=== PATIENT | female | born 1995 ===

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

== ENCOUNTER 2017-07-14 22:18 | Emergency (ER) | payer OTHER ==
[2017-07-14 22:55] VITALS: BMI 24.0
[2017-07-14 23:02] VITALS: BP 110/70; PULSE 71; TEMP 98.9
[2017-07-14 23:03] VITALS: RESP 19; O2SAT 97
--- NOTE | 2017-07-14 23:24 | ED PDOC ---
Arrival/HPI - History of Present Illness Activities at Onset: Light <BaljeetMerlin - Last Filed: 07/15/17 00:28> - General Historian: Patient EM Caveat: Language Barrier (patient spoke frisian and had family member translate) - History of Present Illness Time/Duration: Other (1 year) Symptom Onset: Gradual Symptom Course: Worsening Quality: Other (heavy feeling, with numbness and sharp pain. ) <Estrella Calhoun - Last Filed: 07/15/17 00:38> - General Chief Complaint: Chest Pain Time Seen by Provider: 07/14/17 22:31 - History of Present Illness Narrative History of Present Illness (Text): CC: arm pain, chest pain, back pain 07/14/17 23:20 21F had arm pain, chest pain, and shoulder pain that has been going on for about a year. Patient states it's been getting worse. Patient states she doesn' t have a job right now. Patient is right handed. Patient states the pain is worse with stress and anxiety, the pain at chest that radiates to back is worse when sleeping prone. Patient states that she feels like her left arm is heavy. No heavy lifting, no trauma. PMD: none. (Estrella Calhoun) Past Medical History - Provider Review Nursing Documentation Reviewed: Yes - Past History Past History: No Previous - Infectious Disease Hx of Infectious Diseases: None - Cardiac Hx Cardiac Disorders: No - Pulmonary Hx Respiratory Disorders: No - Neurological Hx Neurological Disorder: No - HEENT Hx HEENT Disorder: No - Renal Hx Renal Disorder: No - Endocrine/Metabolic Hx Endocrine Disorders: No - Hematological/Oncological Hx Blood Disorders: No - Integumentary Hx Dermatological Disorder: No - Musculoskeletal/Rheumatological Hx Musculoskeletal Disorders: No - Gastrointestinal Hx Gastrointestinal Disorders: No - Genitourinary/Gynecological Hx Genitourinary Disorders: No - Psychiatric Hx Psychophysiologic Disorder: No Hx Substance Use: No - Past Surgical History Past Surgical History: No Previous - Anesthesia Hx Anesthesia: No Hx Anesthesia Reactions: No Hx Malignant Hyperthermia: No <Estrella Calhoun - Last Filed: 07/15/17 00:38> Family/Social History - Physician Review Nursing Documentation Reviewed: Yes Family/Social History: Unknown Family HX Smoking Status: Never Smoked Hx Alcohol Use: No Hx Substance Use: No <Estrella Calhoun - Last Filed: 07/15/17 00:38> Allergies/Home Meds <Hi Delongneth - Last Filed: 07/15/17 00:28> <Efren Calhounanda - Last Filed: 07/15/17 00:38> Allergies/Adverse Reactions: Allergies No Known Allergies Allergy (Verified 07/14/17 22:55) Home Medications: Home Meds Medication Instructions Recorded Confirmed No Known Home Med 07/14/17 07/14/17 Review of Systems - Physician Review All systems were reviewed & negative as marked: Yes - Review of Systems Constitutional: Normal. absent: Fatigue, Weight Change Eyes: Normal. absent: Vision Changes, Photophobia, Eye Pain ENT: absent: Hearing Changes, TMJ Pain Respiratory: absent: SOB, Cough, Sputum Cardiovascular: Chest Pain (to palpation and with movement). absent: Palpitations, Edema, Calf Pain, CRYSTAL, Orthopnea Gastrointestinal: Normal. absent: Abdominal Pain, Constipation, Diarrhea, Nausea, Vomiting Musculoskeletal: Normal, Back Pain. absent: Arthralgias, Neck Pain Skin: Normal. absent: Rash, Pruritis, Skin Lesions Neurological: Normal. absent: Headache, Dizziness, Focal Weakness, Gait Changes , Speech Changes, Facial Droop, Disequilibrium, Seizure Endocrine: Normal. absent: Diaphoresis, Polyuria, Polydipsia Hemo/Lymphatic: Normal. absent: Adenopathy, Easy Bleeding, Easy Bruising Psychiatric: Normal. absent: Anxiety, Depression, Suicidal Ideation <UniqueEstrella - Last Filed: 07/15/17 00:38> Physical Exam Vital Signs Reviewed: Yes <Merlin Delong - Last Filed: 07/15/17 00:28> Temperature: Afebrile Blood Pressure: Normal Pulse: Regular Respiratory Rate: Normal Appearance: Positive for: Comfortable Pain Distress: Moderate Mental Status: Positive for: Alert and Oriented X 3 - Systems Exam Head: Present: Atraumatic, Normocephalic Pupils: Present: PERRL Extroacular Muscles: Present: EOMI Conjunctiva: Present: Normal Mouth: Present: Moist Mucous Membranes Nose (External): Present: Atraumatic. No: Abrasion, Contusion, Laceration Neck: Present: Normal Range of Motion, Trachea Midline. No: JVD Respiratory/Chest: Present: Clear to Auscultation, Good Air Exchange, Respiratory Distress Cardiovascular: Present: Regular Rate and Rhythm, Normal S1, S2. No: Murmurs Abdomen: Present: Normal Bowel Sounds. No: Tenderness, Distention, Peritoneal Signs Back: Present: Normal Inspection, Paraspinal Tenderness (left tenderness to palpation of paraspinal muscles at T4-T6). No: CVA Tenderness, Midline Tenderness Upper Extremity: Present: Normal Inspection, Normal ROM (normal ROM with tenderness to movement of left arm in abduction and internal rotation of shoulder), NORMAL PULSES, Neurovascularly Intact, Capillary Refill < 2s. No: Cyanosis, Edema, Swelling, Temperature Abnormalties Lower Extremity: Present: Normal Inspection, NORMAL PULSES, Normal ROM, Capillary Refill < 2 s. No: Edema Neurological: Present: GCS=15, CN II-XII Intact, Speech Normal Skin: Present: Warm, Dry. No: Rashes, Normal Color Psychiatric: Present: Alert, Oriented x 3, Normal Insight, Normal Concentration <Estrella Calhoun - Last Filed: 07/15/17 00:38> - Physical Exam Narrative Physical Exam (Text): 07/14/17 23:30 muscle strength 5/5 bilaterally in upper and lower extremities apprehension test negative on left yergason's negative on left neer's test negative on left Pain on chest is worse with palpation on left (Estrella Calhoun) Vital Signs Temp Pulse Resp BP Pulse Ox 07/14/17 23:03 98.9 F 71 19 110/70 97 07/14/17 22:56 98.9 F 71 18 110/70 98 Medical Decision Making <Merlin Delong - Last Filed: 07/15/17 00:28> - EKG Interpretation Interpreted by ED Physician: Yes Type: 12 lead EKG <Estrella Calhoun - Last Filed: 07/15/17 00:38> ED Course and Treatment: Patient Seen With Resident: In agreement with resident note which contains more details about the patient. Patient was seen and evaluated with resident. Came up with plan and treatment together. 21 year old female presents complaining of arm pain, chest pain, and shoulder pain that began a year ago. Plan: -- Flexeril -- Motrin Tab (Merlin Delong) 07/14/17 23:29 motrin 400mg PO once (Estrella Calhoun) - EKG Interpretation EKG Interpretation (Text): 07/14/17 23:31 74bpm nsr (Estrella Calhoun) - Medication Orders Current Medication Orders: Discontinued Medications Cyclobenzaprine HCl (Flexeril) 5 mg PO STAT STA Stop: 07/14/17 23:35 Ibuprofen (Motrin Tab) 400 mg PO STAT STA Stop: 07/14/17 23:20 - Scribe Statement The provider has reviewed the documentation as recorded by the Scribe <Merlin Delong - Last Filed: 07/15/17 00:28> <Estrella Calhoun - Last Filed: 07/15/17 00:38> - Scribe Statement Tricia Daley Provider Scribe Attestation: All medical record entries made by the Scribe were at my direction and personally dictated by me. I have reviewed the chart and agree that the record accurately reflects my personal performance of the history, physical exam, medical decision making, and the department course for this patient. I have also personally directed, reviewed, and agree with the discharge instructions and disposition. (Merlin Delong) Disposition/Present on Arrival <Merlin Delong - Last Filed: 07/15/17 00:28> - Present on Arrival Any Indicators Present on Arrival: No History of DVT/PE: No History of Uncontrolled Diabetes: No Urinary Catheter: No History of Decub. Ulcer: No History Surgical Site Infection Following: None - Disposition Have Diagnosis and Disposition been Completed?: Yes Disposition Time: 00:36 Patient Plan: Discharge <Estrella Calhoun - Last Filed: 07/15/17 00:38> - Disposition Diagnosis: Tendonitis, Sprain of subscapularis muscle or tendon Disposition: HOME/ ROUTINE Condition: IMPROVED Additional Instructions: follow up with primary care doctor rest, ice, light activity with left arm take NSAIDS as needed Forms: [employer] (Kyrgyz)
--- NOTE | 2017-07-17 14:45 | CARD ---
APPROVED REPORT EKG Measurement Heart [id number] <Conclusion> Normal sinus rhythm Normal ECG
== END 2017-07-15 00:45 | disposition home or self-care (01) ==
LOC: ED 22:18
DX: S43.82XA Sprain of other specified parts of left shoulder girdle, initial encounter (principal); X58.XXXA Exposure to other specified factors, initial encounter; M77.9 Enthesopathy, unspecified

== ENCOUNTER 2017-08-12 21:17 | Emergency (ER) | payer OTHER ==
[2017-08-12 21:22] VITALS: BMI 23.8
--- NOTE | 2017-08-12 21:30 | ED PDOC ---
Arrival/HPI - General Time Seen by Provider: 08/12/17 21:26 Historian: Patient, EMS, Police - History of Present Illness Narrative History of Present Illness (Text): 08/12/17 21:27 21 y/o female, no significant pmh, nkda, biba with the police for the psychiatric evaluation x 1 hour. Pt. stated that she was arguing with the elvin, ran out of the house and run to the river, stated that the call the police because he was afraid that she will jump into the river but the patient stated that she just wanna taken a break from the argument. Pt. stated that she has no homicidal or suicidal ideation, no auditory or visual hallucination, no palpitation, no chest pain or shortness of breath, no rash, no other medical or psychological complaints. Past Medical History - Provider Review Nursing Documentation Reviewed: Yes - Past History Past History: No Previous - Infectious Disease Hx of Infectious Diseases: None - Cardiac Hx Cardiac Disorders: No - Pulmonary Hx Respiratory Disorders: No - Neurological Hx Neurological Disorder: No - HEENT Hx HEENT Disorder: No - Renal Hx Renal Disorder: No - Endocrine/Metabolic Hx Endocrine Disorders: No - Hematological/Oncological Hx Blood Disorders: No - Integumentary Hx Dermatological Disorder: No - Musculoskeletal/Rheumatological Hx Musculoskeletal Disorders: No - Gastrointestinal Hx Gastrointestinal Disorders: No - Genitourinary/Gynecological Hx Genitourinary Disorders: No - Psychiatric Hx Psychophysiologic Disorder: No Hx Substance Use: No - Past Surgical History Past Surgical History: No Previous - Anesthesia Hx Anesthesia: No Hx Anesthesia Reactions: No Hx Malignant Hyperthermia: No Family/Social History - Physician Review Nursing Documentation Reviewed: Yes Family/Social History: Unknown Family HX Smoking Status: Never Smoked Hx Alcohol Use: No Hx Substance Use: No Allergies/Home Meds Allergies/Adverse Reactions: Allergies No Known Allergies Allergy (Verified 07/14/17 22:55) Review of Systems - Review of Systems Constitutional: absent: Fatigue, Fevers Eyes: absent: Vision Changes ENT: absent: Hearing Changes Respiratory: absent: SOB, Cough Cardiovascular: absent: Chest Pain Gastrointestinal: absent: Abdominal Pain, Diarrhea, Nausea, Vomiting Musculoskeletal: absent: Arthralgias, Myalgias Skin: absent: Rash, Pruritis Neurological: absent: Headache Psychiatric: absent: Anxiety, Depression, Suicidal Ideation Physical Exam Vital Signs Temp Pulse Resp BP Pulse Ox 08/12/17 21:39 97.9 F 81 18 121/78 100 - Systems Exam Head: Present: Atraumatic, Normocephalic Pupils: Present: PERRL Extroacular Muscles: Present: EOMI Conjunctiva: Present: Normal Mouth: Present: Moist Mucous Membranes Neck: Present: Normal Range of Motion Respiratory/Chest: Present: Clear to Auscultation, Good Air Exchange. No: Respiratory Distress, Accessory Muscle Use Cardiovascular: Present: Regular Rate and Rhythm, Normal S1, S2. No: Murmurs Abdomen: Present: Normal Bowel Sounds. No: Tenderness, Distention, Peritoneal Signs Back: Present: Normal Inspection Upper Extremity: Present: Normal Inspection. No: Cyanosis, Edema Lower Extremity: Present: Normal Inspection. No: Edema Neurological: Present: GCS=15, CN II-XII Intact, Speech Normal, Motor Func Grossly Intact, Gait Normal, Memory Normal Skin: Present: Warm, Dry, Normal Color. No: Rashes Psychiatric: Present: Alert, Oriented x 3, Normal Insight, Normal Concentration Medical Decision Making ED Course and Treatment: 08/12/17 21:30 -labs/ua -PES notified and will come to evaluate the patient -observe and reassess 08/12/17 22:56 -Labs are non-significant -UA show +UTI, macrobid ordered -UDS show no acute findings -Pt. is medically clear and stable for psychiatric evaluation. 08/12/17 23:39 -Pt. evaluated by the PES and discussed with Dr. Robertson, stable to be discharged home from psychiatric point of view -Discharge home with macrobid, stay hydrated, bed rest, follow up with your own pmd and psychiatrist within 2 days, return to the ER for any new or worsening signs or symptoms. - Lab Interpretations Lab Results: 08/12/17 10:00 08/12/17 10:00 Lab Results 08/12/17 23:00: Urine Opiates Screen Negative, Urine Methadone Screen Negative, Ur Barbiturates Screen Negative, Ur Phencyclidine Scrn Negative, Ur Amphetamines Screen Negative, U Benzodiazepines Scrn Negative, U Oth Cocaine Metabols Negative, U Cannabinoids Screen Negative 08/12/17 21:29: Urine Color Yellow, Urine Appearance Clear, Urine pH 6.0, Ur Specific [place] >= 1.030, Urine Protein Trace H, Urine Glucose (UA) Negative, Urine Ketones Negative, Urine Blood Negative, Urine Nitrate Positive H, Urine Bilirubin Negative, Urine Urobilinogen 0.2, Ur Leukocyte Esterase Trace H, Urine RBC Pending, Urine WBC Pending 08/12/17 10:00: WBC 9.5, RBC 4.30, Hgb 12.3, Hct 37.0, MCV 86.0, MCH 28.6, MCHC 33.2, RDW 13.5, Plt Count 269, MPV 9.4, Gran % 64.6, Lymph % (Auto) 28.7, Hughes % (Auto) 6.0, Eos % (Auto) 0.4 L, Baso % (Auto) 0.3, Gran # 6.16, Lymph # (Auto ) 2.7, Hughes # (Auto) 0.6, Eos # (Auto) 0.0, Baso # (Auto) 0.03 08/12/17 10:00: Alcohol, Quantitative < 10 08/12/17 10:00: Salicylates < 1 L, Acetaminophen < 10.0 L 08/12/17 10:00: Sodium 142, Potassium 4.1, Chloride 105, Carbon Dioxide 24, Anion Gap 18, BUN 15, Creatinine 0.6 L, Est GFR ( Amer) > 60, Est GFR ( Non-Af Amer) > 60, Random Glucose 93, Calcium 10.1, Total Bilirubin 0.3, AST 25 , ALT 23, Alkaline Phosphatase 92, Total Protein 8.6 H, Albumin 4.8, Globulin 3.8, Albumin/Globulin Ratio 1.3 - Medication Orders Current Medication Orders: Discontinued Medications Nitrofurantoin Macrocrystals (Macrobid) 100 mg PO STAT STA Stop: 08/12/17 23:11 - PA / KENO WRITER / RUNNER / Resident Statement /DO has reviewed & agrees with the documentation as recorded. Disposition/Present on Arrival - Present on Arrival Any Indicators Present on Arrival: No History of DVT/PE: No History of Uncontrolled Diabetes: No Urinary Catheter: No History of Decub. Ulcer: No History Surgical Site Infection Following: None - Disposition Have Diagnosis and Disposition been Completed?: Yes Diagnosis: Psychiatric care, UTI (urinary tract infection) Disposition: HOME/ ROUTINE Disposition Time: 21:31 Patient Plan: Discharge Patient Problems: Current Active Problems Problem Status Onset Psychiatric care Acute UTI (urinary tract infection) Acute Condition: GOOD Additional Instructions: -Discharge home with macrobid, stay hydrated, bed rest, follow up with your own pmd and psychiatrist within 2 days, return to the ER for any new or worsening signs or symptoms. Prescriptions: Nitrofurantoin Macrocrystals [Macrobid] 100 mg PO BID #14 cap Referrals: PCP,NO [Primary Care Provider] - Follow up with primary [facility] [Outside] - [place] up with [place] [facility] [place] [facility] [place] - Follow up with primary
[2017-08-12 21:40] VITALS: RESP 18
[2017-08-12 22:21] LABS: ALB/GLOB RATIO 1.3 (1.1-1.8); ALBUMIN 4.8 g/dL (3.0-4.8); ALT/SGPT 23 U/L (7-56); AST/SGOT 25 U/L (14-36); BLOOD UREA NITROGEN 15 mg/dL (7-21); CALCIUM 10.1 mg/dL (8.4-10.5); GFR AFRICAN-AMERICAN > 60; GFR NON-AFRICAN AMERICAN > 60
[2017-08-12 22:28] LABS: BASO # 0.03 K/mm3 (0.0-2.0); BASO % 0.3 % (0.0-3.0); EOS % 0.4 % (1.5-5.0); GRAN # 6.16 (1.4-6.5); GRAN % 64.6 % (50.0-68.0); HEMOGLOBIN 12.3 g/dL (12.0-16.0); LYMPH # 2.7 (1.2-3.4); LYMPH % 28.7 % (22.0-35.0); MEAN CORPUSCULAR HEMOGLOBIN 28.6 pg (25.0-35.0); MEAN CORPUSCULAR HGB CONC 33.2 g/dl (31.0-37.0); MEAN PLATELET VOLUME 9.4 fl (7.0-11.0); MONO # 0.6 (0.1-0.6); RBC 4.3 10^6/uL (3.5-6.1); RED CELL DISTRIBUTION WIDTH 13.5 % (11.5-14.5); WHITE BLOOD COUNT 9.5 10^3/ul (4.5-11.0)
[2017-08-12 22:29] LABS: ACETAMINOPHEN < 10.0 ug/ml (10.0-20.0); SALICYLATE < 1 mg/dL (2.0-20.0)
[2017-08-12 22:59] LABS: URINE APPEARANCE CLEAR (CLEAR); URINE BILIRUBIN NEGATIVE (NEGATIVE); URINE BLOOD NEGATIVE (NEGATIVE); URINE COLOR YELLOW (YELLOW); URINE GLUCOSE (UA) NEGATIVE (NEGATIVE); URINE LEUKOCYTE ESTERASE TRACE Leu/uL (NEGATIVE); URINE NITRATE POSITIVE (NEGATIVE); URINE PROTEIN TRACE mg/dL (<30 mg/dL); URINE UROBILINOGEN 0.2 E.U./dL (<1 E.U./dL)
[2017-08-12 23:39] LABS: BARBITURATES, UR NEGATIVE (NEGATIVE); BENZODIAZEPINES, UR NEGATIVE (NEGATIVE); OPIATES, UR NEGATIVE (NEGATIVE); PHENCYCLIDINE, UR NEGATIVE (NEGATIVE)
[2017-08-12 23:44] VITALS: BP 120/75; PULSE 78; TEMP 98; O2SAT 98
[2017-08-12 23:57] LABS: URINE BACTERIA MANY (NEG); URINE EPITHELIAL CELLS 0 - 2 /hpf (0-5); URINE RBC 0 - 2 /hpf (0-2)
== END 2017-08-13 00:08 | disposition home or self-care (01) ==
LOC: ED 21:17
DX: Z00.8 Encounter for other general examination (principal); N39.0 Urinary tract infection, site not specified

== ENCOUNTER 2018-03-29 10:57 | Emergency (ER) | payer OTHER, MEDICAID ==
[2018-03-29 10:57] VITALS: BMI 23.8
[2018-03-29 11:24] VITALS: RESP 18
[2018-03-29 12:34] LABS: BASO # 0.05 K/mm3 (0.0-2.0); BASO % 0.6 % (0.0-3.0); EOS # 0.4 (0.0-0.7); EOS % 4.6 % (1.5-5.0); GRAN # 4.05 (1.4-6.5); HEMOGLOBIN 12.6 g/dL (12.0-16.0); LYMPH # 3.4 (1.2-3.4); LYMPH % 39.4 % (22.0-35.0); MEAN CELL VOLUME 84.4 fl (80.0-105.0); MEAN CORPUSCULAR HEMOGLOBIN 27.7 pg (25.0-35.0); MEAN CORPUSCULAR HGB CONC 32.8 g/dl (31.0-37.0); MEAN PLATELET VOLUME 8.8 fl (7.0-11.0); MONO # 0.7 (0.1-0.6); MONO % 8.4 % (1.0-6.0); RBC 4.55 10^6/uL (3.5-6.1); RED CELL DISTRIBUTION WIDTH 13.5 % (11.5-14.5); WHITE BLOOD COUNT 8.6 10^3/ul (4.5-11.0)
[2018-03-29 12:46] LABS: ALB/GLOB RATIO 1.1 (1.1-1.8); ALBUMIN 4.6 g/dL (3.0-4.8); ALT/SGPT 23 U/L (7-56); AST/SGOT 27 U/L (14-36); BLOOD UREA NITROGEN 9 mg/dL (7-21); CALCIUM 9.6 mg/dL (8.4-10.5); GFR NON-AFRICAN AMERICAN > 60
[2018-03-29 12:50] LABS: INR 1.06; PARTIAL THROMBOPLASTIN TIME 31.6 Seconds (25.1-36.5); PROTHROMBIN TIME 12.2 SECONDS (9.4-12.5)
[2018-03-29 12:53] LABS: URINE BILIRUBIN NEGATIVE (NEGATIVE); URINE BLOOD LARGE (NEGATIVE); URINE GLUCOSE (UA) NEGATIVE (NEGATIVE); URINE LEUKOCYTE ESTERASE NEGATIVE Leu/uL (NEGATIVE); URINE PROTEIN NEGATIVE mg/dL (<30 mg/dL)
[2018-03-29 12:55] LABS: URINE APPEARANCE CLEAR (CLEAR); URINE COLOR YELLOW (YELLOW)
[2018-03-29 12:59] LABS: URINE BACTERIA MANY (NEG); URINE RBC 25 - 30 /hpf (0-2)
--- NOTE | 2018-03-29 14:35 | RAD ---
Date of service: 03/29/2018 HISTORY: cough COMPARISON: No prior. TECHNIQUE: Chest PA and lateral FINDINGS: LUNGS: No active pulmonary disease. PLEURA: No significant pleural effusion identified. No pneumothorax apparent. CARDIOVASCULAR: No atherosclerotic calcification present Normal. OSSEOUS STRUCTURES: No significant abnormalities. VISUALIZED UPPER ABDOMEN: Normal. OTHER FINDINGS: None. IMPRESSION: No active disease. No significant interval change compared to the prior examination(s).
[2018-03-29] MEDS ORDERED: guaiFENesin 200 mg/10 ml Syrup UD PO STA (14:41)
--- NOTE | 2018-03-29 14:52 | ED PDOC ---
Arrival/HPI - General Chief Complaint: Female Genitourinary Time Seen by Provider: 03/29/18 11:32 Historian: Patient - History of Present Illness Narrative History of Present Illness (Text): 03/29/18 14:48 22yo female with no pmhx who present with complaint of prolonged period for 9days. States she stopped her control 4months ago and worried that she might be . She also report productive cough for two days. He did not take any medication. Denies fever, chills, SOB, chest pain, diaphoresis, nausea, vomiting, any other complaint. Past Medical History - Provider Review Nursing Documentation Reviewed: Yes - Past History Past History: No Previous - Infectious Disease Hx of Infectious Diseases: None - Cardiac Hx Cardiac Disorders: No - Pulmonary Hx Respiratory Disorders: No - Neurological Hx Neurological Disorder: No - HEENT Hx HEENT Disorder: No - Renal Hx Renal Disorder: No - Endocrine/Metabolic Hx Endocrine Disorders: No - Hematological/Oncological Hx Blood Disorders: No - Integumentary Hx Dermatological Disorder: No - Musculoskeletal/Rheumatological Hx Musculoskeletal Disorders: No - Gastrointestinal Hx Gastrointestinal Disorders: No - Genitourinary/Gynecological Hx Genitourinary Disorders: No - Psychiatric Hx Psychophysiologic Disorder: No Hx Substance Use: No - Past Surgical History Past Surgical History: No Previous - Anesthesia Hx Anesthesia: No Hx Anesthesia Reactions: No Hx Malignant Hyperthermia: No Family/Social History - Physician Review Nursing Documentation Reviewed: Yes Family/Social History: Unknown Family HX Smoking Status: Never Smoked Hx Alcohol Use: No Hx Substance Use: No Allergies/Home Meds Allergies/Adverse Reactions: Allergies No Known Allergies Allergy (Verified 07/14/17 22:55) Review of Systems - Physician Review All systems were reviewed & negative as marked: Yes - Review of Systems Constitutional: Normal Eyes: Normal ENT: Normal Respiratory: Cough Cardiovascular: Normal Gastrointestinal: Normal Genitourinary Female: Vaginal Bleeding. absent: Dysuria, Frequency, Hematuria Musculoskeletal: Normal Skin: Normal Neurological: Normal Endocrine: Normal Hemo/Lymphatic: Normal Psychiatric: Normal Physical Exam Vital Signs Reviewed: Yes Vital Signs Temp Pulse Resp BP Pulse Ox 03/29/18 10:57 98.7 F 86 18 137/77 100 Temperature: Afebrile Blood Pressure: Normal Pulse: Regular Respiratory Rate: Normal Appearance: Positive for: Well-Appearing, Non-Toxic, Comfortable Pain Distress: None Mental Status: Positive for: Alert and Oriented X 3 - Systems Exam Head: Present: Atraumatic, Normocephalic Pupils: Present: PERRL Extroacular Muscles: Present: EOMI Conjunctiva: Present: Normal Mouth: Present: Moist Mucous Membranes Neck: Present: Normal Range of Motion Respiratory/Chest: Present: Clear to Auscultation, Good Air Exchange. No: Res piratory Distress, Accessory Muscle Use, Wheezes, Decreased Breath Sounds, Retracting, Rhonchi Cardiovascular: Present: Regular Rate and Rhythm, Normal S1, S2. No: Murmurs Abdomen: No: Tenderness, Distention, Peritoneal Signs Back: Present: Normal Inspection Upper Extremity: Present: Normal Inspection. No: Cyanosis, Edema Lower Extremity: Present: Normal Inspection. No: Edema Neurological: Present: GCS=15, CN II-XII Intact, Speech Normal Skin: Present: Warm, Dry, Normal Color. No: Rashes Psychiatric: Present: Alert, Oriented x 3, Normal Insight, Normal Concentration Medical Decision Making ED Course and Treatment: 03/29/18 15:49 22yo female in ED with complaint of prolonged period and cough. She was afebrile in ED. Denied chest pain, dizziness, SOB, headache, any other complaint in ED. Pt's menorrhagia likely secondary to her history of OC use. Labs CXR 1L NS Pt's lab was all wnl. with h/h wnl. CXR NAD Result was DW the pt and she was not in any distress in ED. Hemodynamically stable. She was worried of been and her Upreg was negative in ED. She was advised to f/u with [facility] since she stopped her OCP use 4months, she mi ght need to go back on OCP to reset her period. Antitussive and albuterol rx was given. They was no indication for abx at this time. - Lab Interpretations Lab Results: 03/29/18 12:20 03/29/18 12:20 Lab Results 03/29/18 12:20: Sodium 139, Potassium 4.4, Chloride 103, Carbon Dioxide 26, Anion Gap 14, BUN 9, Creatinine 0.5 L, Est GFR ( Amer) > 60, Est GFR (Non-Af Amer) > 60, Random Glucose 96, Calcium 9.6, Total Bilirubin 0.2, AST 27, ALT 23, Alkaline Phosphatase 91, Total Protein 8.9 H, Albumin 4.6, Globulin 4.2, Albumin/Globulin Ratio 1.1 03/29/18 12:20: PT 12.2, INR 1.06, APTT 31.6 03/29/18 12:20: WBC 8.6, RBC 4.55, Hgb 12.6, Hct 38.4, MCV 84.4, MCH 27.7, MCHC 32.8, RDW 13.5, Plt Count 307, MPV 8.8, Gran % 47.0 L, Lymph % (Auto) 39.4 H, Rankin % (Auto) 8.4 H, Eos % (Auto) 4.6, Baso % (Auto) 0.6, Gran # 4.05, Lymph # (Auto) 3.4, Rankin # (Auto) 0.7 H, Eos # (Auto) 0.4, Baso # (Auto) 0.05 03/29/18 12:03: Urine Color Yellow, Urine Appearance Clear, Urine pH 6.0, Ur Specific Fischer 1.025, Urine Protein Negative, Urine Glucose (UA) Negative, Urine Ketones Negative, Urine Blood Large H, Urine Nitrate Negative, Urine Bilirubin Negative, Urine Urobilinogen 1.0 H, Ur Leukocyte Esterase Negative, Urine RBC 25 - 30, Urine WBC 1 - 3, Ur Epithelial Cells 6 - 8, Urine Bacteria Ma ny - RAD Interpretation Radiology Orders: 03/29/18 12:01 CHEST TWO VIEWS (PA/LAT) [RAD] Stat - Medication Orders Current Medication Orders: Discontinued Medications Guaifenesin (Robitussin) 200 mg PO Q4H STA Stop: 03/29/18 14:42 Disposition/Present on Arrival - Present on Arrival Any Indicators Present on Arrival: No History of DVT/PE: No History of Uncontrolled Diabetes: No Urinary Catheter: No History of Decub. Ulcer: No History Surgical Site Infection Following: None - Disposition Have Diagnosis and Disposition been Completed?: Yes Diagnosis: Menorrhagia, Cough Disposition: HOME/ ROUTINE Disposition Time: 14:55 Patient Plan: Discharge Patient Problems: Current Active Problems Problem Status Onset Cough Acute Menorrhagia Acute Condition: STABLE Discharge Instructions (ExitCare): Cough in Adults, Heavy Periods Additional Instructions: Follow up with your Doctor/[facility] Return to ED for any new or worsening symptoms Prescriptions: Albuterol HFA [Ventolin HFA 90 mcg/actuation (8 g)] 2 puff IH [id number] #1 puff Benzonatate [Tessalon Perles] 100 mg PO TID #20 sgl Referrals: Kanu Muhammad MD [Staff Provider] - Follow up with primary Forms: [employer] (Khmer)
[2018-03-29 16:09] VITALS: PULSE 72
[2018-03-29 16:27] VITALS: BP 121/73; TEMP 98.5; O2SAT 97
== END 2018-03-29 15:12 | disposition home or self-care (01) ==
LOC: ED 10:57
DX: N92.0 Excessive and frequent menstruation with regular cycle (principal); R05 Cough